=== PATIENT | female | born 1950 | race Hispanic/Latino ===

== ENCOUNTER 2017-07-01 19:25 | Inpatient (IN) | payer MEDICAID ==
[~2017-07-01] VITALS: Ht 157.5 cm; Wt 63.0 kg
[2017-07-01 19:44] LABS: BASOPHILS % (AUTO) 0.4 % (0.0-5.0); EOSINOPHILS % (AUTO) 0.1 % (0.0-8.0); HEMATOCRIT 31.4 % (36-48); LYMPHOCYTES % (AUTO) 15.9 % (21.0-51.0); MEAN CORPUSCULAR HGB CONC 33.2 g/dL (32.0-36.0); MEAN CORPUSCULAR VOLUME 78.2 fL (79-99); MONOCYTES % (AUTO) 8.9 % (3.0-13.0); NEUTROPHILS % (AUTO) 74.7 % (40.0-77.0); PLATELET COUNT (AUTO) 371 K/uL (130-400); RED BLOOD CELL COUNT(AUTO) 4.02 MIL/uL (4.00-5.50); RED CELL DISTRIBUTION WIDTH 15.5 % (11.0-15.5); WHITE BLOOD COUNT (AUTO) 11.2 K/uL (4.8-10.8)
[2017-07-01 19:58] LABS: CREATININE 0.8 mg/dL (0.5-1.5); INR 0.95 (0.85-1.15); PARTIAL THROMBOPLASTIN TIME 31.7 SEC (26.3-35.5); POTASSIUM 3.1 mmol/L (3.5-5.1)
[2017-07-01 20:12] LABS: ALBUMIN 3.9 g/dL (3.5-5.0); BILIRUBIN,TOTAL 0.6 mg/dL (0.2-1.0); CREATINE KINASE MB 1.7 ng/mL (0.5-3.6); TOTAL PROTEIN, SERUM 7.8 g/dL (6.0-8.3)
[2017-07-01] MEDS ORDERED: ONDANSETRON HCL MDV 20ML 2 MG/ML VIAL ONE (21:21)
[2017-07-01] MEDS ORDERED: MORPHINE SULFATE 4 MG/1ML SYG ONE (21:21)
[2017-07-01] MEDS ORDERED: CLONIDINE HCL 0.1 MG TABLET PO PRN (23:00)
[2017-07-01] MEDS ORDERED: ONDANSETRON HCL MDV 20ML 2 MG/ML VIAL IVP PRN (23:00)
[2017-07-01] MEDS ORDERED: MORPHINE SULFATE 4 MG/1ML SYG IM PRN (23:00)
[2017-07-01] MEDS ORDERED: HYDRALAZINE HCL 20 MG/ML VIAL IM PRN (23:00)
[2017-07-01] MEDS ORDERED: POTASSIUM CHLORIDE 10% ELIXIR 20 MEQ/15 ML UDCUP PO PRN (23:15)
[2017-07-01] MEDS ORDERED: POTASSIUM CHLORIDE 20MEQ/100ML 100 ML IV PRN (23:15)
[2017-07-01] MEDS ORDERED: LIDOCAINE HCL-MPF 1% 2ML VIAL IVP PRN (23:15)
[2017-07-01 23:20] VITALS: BP 144/78
[2017-07-02] VITALS: BP 153/81
[2017-07-02] MEDS: SODIUM CHLORIDE 0.9% 1000ML 1,000 ML IV SCH ×3 (02:03→22:51)
[2017-07-02] MEDS: MORPHINE SULFATE 4 MG/1ML SYG IV PRN ×4 (02:05→23:07)
[2017-07-02 04:00] VITALS: BP 150/64
[2017-07-02 04:54] LABS: HEMATOCRIT 27.2 % (36-48); MEAN CORPUSCULAR HEMOGLOBIN 28.5 pg (27.0-33.0); MEAN CORPUSCULAR HGB CONC 36.6 g/dL (32.0-36.0); PLATELET COUNT (AUTO) 286 K/uL (130-400); RED BLOOD CELL COUNT(AUTO) 3.48 MIL/uL (4.00-5.50); RED CELL DISTRIBUTION WIDTH 15.2 % (11.0-15.5); WHITE BLOOD COUNT (AUTO) 7.1 K/uL (4.8-10.8)
[2017-07-02] MEDS ORDERED: HYDRALAZINE HCL 20 MG/ML VIAL IV PRN (05:00)
[2017-07-02 05:08] LABS: CREATININE 0.8 mg/dL (0.5-1.5); POTASSIUM 3.7 mmol/L (3.5-5.1)
[2017-07-02 05:26] LABS: INR 0.98 (0.85-1.15); PROTHROMBIN TIME 10.3 SEC (9.6-11.6)
[2017-07-02 08:00] VITALS: BP 137/70
[2017-07-02] MEDS: FAMOTIDINE/PF 20 MG/2 ML VIAL IV SCH ×2 (08:29→22:51)
[2017-07-02] MEDS: POTASSIUM CHLORIDE 20 MEQ ERTAB PO PRN ×2 (08:30→12:00)
[2017-07-02] MEDS ORDERED: PANTOPRAZOLE 40 MG/VIAL IVP SCH (09:00)
[2017-07-02] MEDS ORDERED: ENOXAPARIN SODIUM 30 MG/0.3 ML SQ SCH (09:00)
[2017-07-02] MEDS: HYDROCHLOROTHIAZIDE 25 MG TABLET PO SCH (09:58)
[2017-07-02 12:00] VITALS: BP 134/70
[2017-07-02] MEDS: TRAMADOL HCL 50 MG TABLET PO PRN (12:01)
[2017-07-02 16:00] VITALS: BP 143/74
[2017-07-02 19:00] VITALS: BP 166/85
[2017-07-02 20:40] LABS: HEMOGLOBIN A1C 5.3 % (4.0-6.0)
[2017-07-03 04:00] VITALS: BP 164/82
[2017-07-03 05:16] LABS: HEMATOCRIT 27.1 % (36-48); MEAN CORPUSCULAR HEMOGLOBIN 27.1 pg (27.0-33.0); MEAN CORPUSCULAR HGB CONC 34.6 g/dL (32.0-36.0); MEAN CORPUSCULAR VOLUME 78.5 fL (79-99); PLATELET COUNT (AUTO) 313 K/uL (130-400); RED BLOOD CELL COUNT(AUTO) 3.45 MIL/uL (4.00-5.50); RED CELL DISTRIBUTION WIDTH 15.1 % (11.0-15.5)
[2017-07-03] MEDS: MORPHINE SULFATE 4 MG/1ML SYG IV PRN ×4 (05:23→23:20)
[2017-07-03 05:27] LABS: INR 0.95 (0.85-1.15); PARTIAL THROMBOPLASTIN TIME 34.1 SEC (26.3-35.5)
[2017-07-03 05:33] LABS: CREATININE 0.7 mg/dL (0.5-1.5); POTASSIUM 3.8 mmol/L (3.5-5.1)
[2017-07-03 08:00] VITALS: BP 157/95
[2017-07-03] MEDS: HYDROCHLOROTHIAZIDE 25 MG TABLET PO SCH (08:54)
[2017-07-03] MEDS: ACETAMINOPHEN 325 MG TAB PO PRN (08:54)
[2017-07-03] MEDS: ENOXAPARIN SODIUM 40 MG/0.4 ML SYRINGE SQ SCH (08:54)
[2017-07-03] MEDS: FAMOTIDINE/PF 20 MG/2 ML VIAL IV SCH ×2 (08:55→21:34)
[2017-07-03 12:00] VITALS: BP 151/67
[2017-07-03] MEDS: SODIUM CHLORIDE 0.9% 1000ML 1,000 ML IV SCH (15:15)
[2017-07-03 16:00] VITALS: BP 168/80
[2017-07-03 19:00] VITALS: BP 165/82
[2017-07-03] MEDS: TRAMADOL HCL 50 MG TABLET PO PRN (22:59)
[2017-07-04] VITALS (19 sets, daily range): BP systolic 117–169; BP diastolic 58–89
[2017-07-04] MEDS: SODIUM CHLORIDE 0.9% 1000ML 1,000 ML IV SCH ×5 (01:15→21:15)
[2017-07-04] MEDS: MORPHINE SULFATE 4 MG/1ML SYG IV PRN ×3 (05:15→23:07)
[2017-07-04 05:47] LABS: HEMATOCRIT 29.5 % (36-48); MEAN CORPUSCULAR HEMOGLOBIN 27.5 pg (27.0-33.0); MEAN CORPUSCULAR HGB CONC 35.3 g/dL (32.0-36.0); MEAN CORPUSCULAR VOLUME 77.9 fL (79-99); NUCLEATED RED BLOOD CELLS 0.1 % (0.0-0.19); PLATELET COUNT (AUTO) 349 K/uL (130-400); RED BLOOD CELL COUNT(AUTO) 3.79 MIL/uL (4.00-5.50); WHITE BLOOD COUNT (AUTO) 10.8 K/uL (4.8-10.8)
[2017-07-04 05:57] LABS: CREATININE 0.7 mg/dL (0.5-1.5); POTASSIUM 3.6 mmol/L (3.5-5.1)
[2017-07-04 07:53] LABS: EOSINOPHILS % (MANUAL) 2 % (1-6); LYMPHOCYTES % (MANUAL) 14 % (22-44); MAN.DIFF COMMENT-IMPRESSION MANUAL DIFFERENTIAL; MONOCYTES % (MANUAL) 6 % (2-9); PLATELET MORPHOLOGY COMMENT ADEQUATE; SEGMENTED NEUTROPHILS % 78 % (40-70)
[2017-07-04] MEDS: ENOXAPARIN SODIUM 40 MG/0.4 ML SYRINGE SQ SCH (09:00)
[2017-07-04] MEDS: HYDROCHLOROTHIAZIDE 25 MG TABLET PO SCH (09:00)
[2017-07-04] MEDS: FAMOTIDINE/PF 20 MG/2 ML VIAL IV SCH ×2 (10:14→21:04)
[2017-07-04] MEDS ORDERED: FENTANYL CITRATE PF 50 MCG/1 ML 5ML AMP IV ONE (14:18)
[2017-07-04] MEDS ORDERED: MIDAZOLAM HCL 1 MG/ML 2ML VIAL ONE (14:18)
[2017-07-04] MEDS ORDERED: PROPOFOL 10 MG/ML 20ML VIAL IV ONE (14:19)
[2017-07-04] MEDS ORDERED: MORPHINE SULFATE 4 MG/1ML SYG IVP PRN (19:45)
[2017-07-04] MEDS: TRAMADOL HCL 50 MG TABLET PO PRN (21:09)
[2017-07-04] MEDS: CEFAZOLIN SODIUM 1 GM VIAL IVP SCH (23:06)
[2017-07-05] VITALS (7 sets, daily range): BP systolic 139–173; BP diastolic 61–88
[2017-07-05] MEDS: SODIUM CHLORIDE 0.9% 1000ML 1,000 ML IV SCH ×2 (04:21→17:15)
[2017-07-05] MEDS: MORPHINE SULFATE 4 MG/1ML SYG IV PRN (04:21)
[2017-07-05] MEDS: CEFAZOLIN SODIUM 1 GM VIAL IVP SCH (06:41)
[2017-07-05] MEDS: HYDROCHLOROTHIAZIDE 25 MG TABLET PO SCH (08:37)
[2017-07-05] MEDS: HYDROCODONE/ACETAMINOPHEN 5/325 MG TAB PO PRN ×3 (08:37→22:29)
[2017-07-05] MEDS: ENOXAPARIN SODIUM 40 MG/0.4 ML SYRINGE SQ SCH ×2 (09:00→10:01)
[2017-07-05] MEDS: FAMOTIDINE/PF 20 MG/2 ML VIAL IV SCH ×2 (10:01→19:59)
[2017-07-05] MEDS ORDERED: LACTULOSE 20 GM/30 ML UDCUP PO PRN (19:15)
[2017-07-06] MEDS: SODIUM CHLORIDE 0.9% 1000ML 1,000 ML IV SCH ×3 (03:15→23:15)
[2017-07-06 04:00] VITALS: BP 145/76
[2017-07-06] MEDS: HYDROCODONE/ACETAMINOPHEN 5/325 MG TAB PO PRN ×5 (04:18→23:40)
[2017-07-06 05:02] LABS: HEMATOCRIT 27.1 % (36-48); MEAN CORPUSCULAR HEMOGLOBIN 27.3 pg (27.0-33.0); MEAN CORPUSCULAR HGB CONC 34.4 g/dL (32.0-36.0); MEAN CORPUSCULAR VOLUME 79.3 fL (79-99); PLATELET COUNT (AUTO) 401 K/uL (130-400); RED BLOOD CELL COUNT(AUTO) 3.42 MIL/uL (4.00-5.50); WHITE BLOOD COUNT (AUTO) 9.4 K/uL (4.8-10.8)
[2017-07-06 05:07] LABS: CREATININE 0.8 mg/dL (0.5-1.5); POTASSIUM 3.4 mmol/L (3.5-5.1)
[2017-07-06 05:32] LABS: BASOPHILS % (MANUAL) 1 % (0-2); LYMPHOCYTES % (MANUAL) 36 % (22-44); MAN.DIFF COMMENT-IMPRESSION MANUAL DIFFERENTIAL; MONOCYTES % (MANUAL) 5 % (2-9); SEGMENTED NEUTROPHILS % 58 % (40-70)
[2017-07-06] MEDS: POTASSIUM CHLORIDE 20 MEQ ERTAB PO PRN ×2 (06:21→08:26)
[2017-07-06] MEDS: HYDROCHLOROTHIAZIDE 25 MG TABLET PO SCH (08:26)
[2017-07-06] MEDS: FAMOTIDINE/PF 20 MG/2 ML VIAL IV SCH ×2 (08:26→19:34)
[2017-07-06] MEDS: ASPIRIN 81MG TAB.CHEW PO SCH (08:26)
[2017-07-06] MEDS: ENOXAPARIN SODIUM 40 MG/0.4 ML SYRINGE SQ SCH (08:27)
[2017-07-06 09:19] VITALS: BP 157/83
[2017-07-06] MEDS: TRAMADOL HCL 50 MG TABLET PO PRN ×2 (11:16→19:21)
[2017-07-06 12:05] VITALS: BP 133/73
[2017-07-06 16:00] VITALS: BP 136/69
[2017-07-06 19:50] VITALS: BP 141/62
[2017-07-07] VITALS (7 sets, daily range): BP systolic 132–155; BP diastolic 55–113
[2017-07-07] MEDS: TRAMADOL HCL 50 MG TABLET PO PRN ×2 (02:35→18:14)
[2017-07-07 04:45] LABS: CREATININE 0.6 mg/dL (0.5-1.5)
[2017-07-07 04:57] LABS: HEMATOCRIT 28.2 % (36-48); MEAN CORPUSCULAR HEMOGLOBIN 26.1 pg (27.0-33.0); MEAN CORPUSCULAR HGB CONC 32.9 g/dL (32.0-36.0); MEAN CORPUSCULAR VOLUME 79.3 fL (79-99); PLATELET COUNT (AUTO) 442 K/uL (130-400); RED BLOOD CELL COUNT(AUTO) 3.55 MIL/uL (4.00-5.50); RED CELL DISTRIBUTION WIDTH 14.8 % (11.0-15.5); WHITE BLOOD COUNT (AUTO) 8.9 K/uL (4.8-10.8)
[2017-07-07 05:28] LABS: BAND NEUTROPHILS % (MANUAL) 6 % (0-2); BASOPHILS % (MANUAL) 1 % (0-2); EOSINOPHILS % (MANUAL) 1 % (1-6); LYMPHOCYTES % (MANUAL) 26 % (22-44); MAN.DIFF COMMENT-IMPRESSION MANUAL DIFFERENTIAL; MONOCYTES % (MANUAL) 5 % (2-9); PLATELET MORPHOLOGY COMMENT SLIGHT INCREASED; SEGMENTED NEUTROPHILS % 61 % (40-70)
[2017-07-07] MEDS: FAMOTIDINE/PF 20 MG/2 ML VIAL IV SCH ×2 (08:34→19:39)
[2017-07-07] MEDS: ASPIRIN 81MG TAB.CHEW PO SCH (08:34)
[2017-07-07] MEDS: HYDROCHLOROTHIAZIDE 25 MG TABLET PO SCH (08:34)
[2017-07-07] MEDS: ENOXAPARIN SODIUM 40 MG/0.4 ML SYRINGE SQ SCH (08:35)
[2017-07-07] MEDS: HYDROCODONE/ACETAMINOPHEN 5/325 MG TAB PO PRN ×3 (08:37→19:40)
[2017-07-07] MEDS: SODIUM CHLORIDE 0.9% 1000ML 1,000 ML IV SCH ×2 (09:15→19:15)
[2017-07-07] MEDS: ACETAMINOPHEN 325 MG TAB PO PRN (15:38)
[2017-07-08] MEDS: HYDROCODONE/ACETAMINOPHEN 5/325 MG TAB PO PRN ×4 (01:29→17:22)
[2017-07-08] MEDS: SODIUM CHLORIDE 0.9% 1000ML 1,000 ML IV SCH ×2 (02:35→15:15)
[2017-07-08 04:35] VITALS: BP 141/70
[2017-07-08 04:56] LABS: HEMATOCRIT 29.2 % (36-48); MEAN CORPUSCULAR HEMOGLOBIN 27.5 pg (27.0-33.0); MEAN CORPUSCULAR HGB CONC 34.6 g/dL (32.0-36.0); MEAN CORPUSCULAR VOLUME 79.4 fL (79-99); NUCLEATED RED BLOOD CELLS 0.1 % (0.0-0.19); PLATELET COUNT (AUTO) 489 K/uL (130-400); RED BLOOD CELL COUNT(AUTO) 3.68 MIL/uL (4.00-5.50); RED CELL DISTRIBUTION WIDTH 15.1 % (11.0-15.5); WHITE BLOOD COUNT (AUTO) 10.9 K/uL (4.8-10.8)
[2017-07-08 05:20] LABS: CREATININE 0.8 mg/dL (0.5-1.5); POTASSIUM 4.1 mmol/L (3.5-5.1)
[2017-07-08 05:37] LABS: BAND NEUTROPHILS % (MANUAL) 9 % (0-2); EOSINOPHILS % (MANUAL) 4 % (1-6); LYMPHOCYTES % (MANUAL) 19 % (22-44); MAN.DIFF COMMENT-IMPRESSION MANUAL DIFFERENTIAL; MONOCYTES % (MANUAL) 6 % (2-9); PLATELET MORPHOLOGY COMMENT SLIGHT INCREASED; SEGMENTED NEUTROPHILS % 62 % (40-70)
[2017-07-08 08:00] VITALS: BP 163/97
[2017-07-08] MEDS: FAMOTIDINE/PF 20 MG/2 ML VIAL IV SCH ×2 (09:00→19:43)
[2017-07-08] MEDS: ASPIRIN 81MG TAB.CHEW PO SCH (09:23)
[2017-07-08] MEDS: HYDROCHLOROTHIAZIDE 25 MG TABLET PO SCH (09:23)
[2017-07-08] MEDS: ENOXAPARIN SODIUM 40 MG/0.4 ML SYRINGE SQ SCH (09:24)
[2017-07-08 12:00] VITALS: BP 139/61
[2017-07-08 16:00] VITALS: BP 134/63
[2017-07-08 19:00] VITALS: BP 138/74
[2017-07-08] MEDS: TRAMADOL HCL 50 MG TABLET PO PRN (19:43)
[2017-07-08 23:42] VITALS: BP 134/70
[2017-07-09] MEDS: HYDROCODONE/ACETAMINOPHEN 5/325 MG TAB PO PRN ×5 (00:54→20:13)
[2017-07-09] MEDS: SODIUM CHLORIDE 0.9% 1000ML 1,000 ML IV SCH ×3 (01:15→21:15)
[2017-07-09 04:00] VITALS: BP 131/77
[2017-07-09 05:41] LABS: HEMATOCRIT 30.7 % (36-48); MEAN CORPUSCULAR HGB CONC 32.8 g/dL (32.0-36.0); MEAN CORPUSCULAR VOLUME 79.2 fL (79-99); NUCLEATED RED BLOOD CELLS 0.3 % (0.0-0.19); PLATELET COUNT (AUTO) 529 K/uL (130-400); RED BLOOD CELL COUNT(AUTO) 3.87 MIL/uL (4.00-5.50); RED CELL DISTRIBUTION WIDTH 14.9 % (11.0-15.5); WHITE BLOOD COUNT (AUTO) 12.7 K/uL (4.8-10.8)
[2017-07-09 05:48] LABS: CREATININE 0.8 mg/dL (0.5-1.5); POTASSIUM 4.1 mmol/L (3.5-5.1)
[2017-07-09 08:00] VITALS: BP 123/76
[2017-07-09 08:35] LABS: EOSINOPHILS % (MANUAL) 4 % (1-6); LYMPHOCYTES % (MANUAL) 29 % (22-44); MAN.DIFF COMMENT-IMPRESSION MANUAL DIFFERENTIAL; MONOCYTES % (MANUAL) 4 % (2-9); PLATELET MORPHOLOGY COMMENT MARKED INCREASED; REACTIVE LYMPHOCYTES 1 % (0-0); SEGMENTED NEUTROPHILS % 62 % (40-70)
[2017-07-09] MEDS: FAMOTIDINE/PF 20 MG/2 ML VIAL IV SCH ×2 (09:00→20:17)
[2017-07-09] MEDS: HYDROCHLOROTHIAZIDE 25 MG TABLET PO SCH (10:10)
[2017-07-09] MEDS: ASPIRIN 81MG TAB.CHEW PO SCH (10:10)
[2017-07-09] MEDS: ENOXAPARIN SODIUM 40 MG/0.4 ML SYRINGE SQ SCH (10:11)
[2017-07-09 12:00] VITALS: BP 146/93
[2017-07-09 16:00] VITALS: BP 148/79
[2017-07-09] MEDS: ACETAMINOPHEN 325 MG TAB PO PRN (17:01)
[2017-07-09 20:00] VITALS: BP 132/74
[2017-07-09 23:55] VITALS: BP 153/74
[2017-07-10] MEDS: HYDROCODONE/ACETAMINOPHEN 5/325 MG TAB PO PRN ×4 (00:06→14:30)
[2017-07-10 04:00] VITALS: BP 133/75
[2017-07-10 06:07] LABS: HEMATOCRIT 30.2 % (36-48); MEAN CORPUSCULAR HGB CONC 34.1 g/dL (32.0-36.0); MEAN CORPUSCULAR VOLUME 79.2 fL (79-99); NUCLEATED RED BLOOD CELLS 0.1 % (0.0-0.19); PLATELET COUNT (AUTO) 519 K/uL (130-400); RED BLOOD CELL COUNT(AUTO) 3.81 MIL/uL (4.00-5.50); RED CELL DISTRIBUTION WIDTH 14.8 % (11.0-15.5); WHITE BLOOD COUNT (AUTO) 12.3 K/uL (4.8-10.8)
[2017-07-10 06:41] LABS: CREATININE 0.8 mg/dL (0.5-1.5); POTASSIUM 4.3 mmol/L (3.5-5.1)
[2017-07-10 07:55] LABS: BAND NEUTROPHILS % (MANUAL) 1 % (0-2); EOSINOPHILS % (MANUAL) 2 % (1-6); LYMPHOCYTES % (MANUAL) 17 % (22-44); MONOCYTES % (MANUAL) 4 % (2-9); MYELOCYTES % 1 % (0-0); SEGMENTED NEUTROPHILS % 75 % (40-70)
[2017-07-10 07:56] LABS: MAN.DIFF COMMENT-IMPRESSION MANUAL DIFFERENTIAL
[2017-07-10 07:57] LABS: PLATELET MORPHOLOGY COMMENT INCREASED
[2017-07-10 08:14] VITALS: BP 122/54
[2017-07-10] MEDS: ASPIRIN 81MG TAB.CHEW PO SCH (08:37)
[2017-07-10] MEDS: HYDROCHLOROTHIAZIDE 25 MG TABLET PO SCH (08:38)
[2017-07-10] MEDS: TRAMADOL HCL 50 MG TABLET PO PRN (08:38)
[2017-07-10] MEDS: ENOXAPARIN SODIUM 40 MG/0.4 ML SYRINGE SQ SCH (08:38)
[2017-07-10] MEDS: FAMOTIDINE/PF 20 MG/2 ML VIAL IV SCH (09:00)
[2017-07-10] MEDS ORDERED: HYDR25TA PO (09:30)
[2017-07-10 11:19] VITALS: BP 132/64
[2017-07-10] MEDS ORDERED: GABAPENTIN 100 MG CAPSULE PO SCH (21:00)
== END 2017-07-10 16:20 | disposition home health service (06) | DRG 308 ==
LOC: EDH 19:25 → EDHIP 19:26 → 4BH 23:09
PROVIDERS: ADMIT Family Medicine; ATTEND Family Medicine
PROC: 0QS606Z Reposition Right Upper Femur with Intramedullary Internal Fixation Device, Open Approach (ICD-10-PCS; principal; 2017-07-04 14:30)
DX: S72.141A Displaced intertrochanteric fracture of right femur, initial encounter for closed fracture (principal); I11.9 Hypertensive heart disease without heart failure; D72.829 Elevated white blood cell count, unspecified; E86.0 Dehydration; E87.6 Hypokalemia; H54.61 Unqualified visual loss, right eye, normal vision left eye; W01.0XXA Fall on same level from slipping, tripping and stumbling without subsequent striking against object, initial encounter; Z60.2 Problems related to living alone; Z91.14 Patient's other noncompliance with medication regimen; Z86.73 Personal history of transient ischemic attack (TIA), and cerebral infarction without residual deficits; Z91.19 Patient's noncompliance with other medical treatment and regimen; Y93.89 Activity, other specified; Y92.89 Other specified places as the place of occurrence of the external cause; Y99.8 Other external cause status
CPT/HCPCS: 36415; 70450; 71045; 73501; 73502; 73551; 73560; 76000; 80048; 80053; 80061; 82550; 82553; 83036; 83874; 84484; 85025; 85027; 85610; 85730; 86850; 86900; 86901; 86922; 93005; 93306; 93880; 97039; A4218; A4344; J0360; J0690; J1650; J2250; J2270; J2704; J3010; J3480; J3490; J7030

== ENCOUNTER 2017-07-22 14:17 | Emergency (ER) | payer MEDICAID ==
[~2017-07-22 14:17] MED LIST: HYDR25TA PO
[2017-07-22] MEDS ORDERED: ACETAMINOPHEN EXTRA STRENGTH 500 MG TABLET ONE (15:39)
[2017-07-22 15:50] LABS: APPEARANCE,URINE Clear (CLEAR); BASOPHILS % (AUTO) 1.1 % (0.0-5.0); BILIRUBIN,URINE Negative (NEGATIVE); COLOR,URINE Yellow (YELLOW); EOSINOPHILS % (AUTO) 0.7 % (0.0-8.0); GLUCOSE, URINE (UA) Negative (NEGATIVE); HEMATOCRIT 30.8 % (36-48); KETONES,URINE Negative (NEGATIVE); LEUKOCYTE ESTERASE ,URINE Negative (NEGATIVE); LYMPHOCYTES % (AUTO) 13.8 % (21.0-51.0); MEAN CORPUSCULAR HEMOGLOBIN 27.5 pg (27.0-33.0); MEAN CORPUSCULAR HGB CONC 34.7 g/dL (32.0-36.0); MEAN CORPUSCULAR VOLUME 79.3 fL (79-99); MONOCYTES % (AUTO) 5.6 % (3.0-13.0); NEUTROPHILS % (AUTO) 78.8 % (40.0-77.0); NITRATE,URINE Negative (NEGATIVE); OCCULT BLOOD,URINE Negative (NEGATIVE); PH,URINE 6.5 (5.0-8.0); PLATELET COUNT (AUTO) 421 K/uL (130-400); PROTEIN,URINE Negative (NEGATIVE); RED BLOOD CELL COUNT(AUTO) 3.88 MIL/uL (4.00-5.50); RED CELL DISTRIBUTION WIDTH 15.9 % (11.0-15.5); UROBILINOGEN,URINE 0.2 mg/dL (0.2-1.0); WHITE BLOOD COUNT (AUTO) 8.9 K/uL (4.8-10.8)
[2017-07-22 15:59] LABS: CREATININE 1.1 mg/dL (0.5-1.5); POTASSIUM 3.5 mmol/L (3.5-5.1)
[2017-07-22] MEDS ORDERED: SODIUM CHLORIDE 0.9% 500ML 500 ML IV ONE (16:29)
== END 2017-07-22 17:29 | disposition home or self-care (01) ==
LOC: EDH 14:17
DX: M25.551 Pain in right hip (principal); I10 Essential (primary) hypertension
CPT/HCPCS: 36415; 73502; 80048; 81003; 85025; 96360; 99285; J7040

== ENCOUNTER 2021-10-19 11:39 | Observation (INO) | payer MEDICARE ==
[~2021-10-19] VITALS: Ht 152.4 cm; Wt 59.1 kg
[2021-10-19 13:11] LABS: BASOPHILS % (AUTO) 0.5 % (0.0-5.0); EOSINOPHILS % (AUTO) 4.2 % (0.0-8.0); HEMATOCRIT 34.7 % (36-48); LYMPHOCYTES % (AUTO) 10.4 % (21.0-51.0); MEAN CORPUSCULAR HEMOGLOBIN 26.9 pg (27.0-33.0); MEAN CORPUSCULAR VOLUME 84.2 fL (79-99); MONOCYTES % (AUTO) 3.9 % (3.0-13.0); NEUTROPHILS % (AUTO) 80.1 % (40.0-77.0); PLATELET COUNT (AUTO) 294 K/uL (130-400); RED BLOOD CELL COUNT(AUTO) 4.12 MIL/uL (4.00-5.50); RED CELL DISTRIBUTION WIDTH 14.6 % (11.0-15.5); WHITE BLOOD COUNT (AUTO) 11.6 K/uL (4.8-10.8)
[2021-10-19 13:44] LABS: ALBUMIN 3.4 g/dL (3.5-5.0); BILIRUBIN,TOTAL 0.2 mg/dL (0.2-1.0); TOTAL PROTEIN, SERUM 7.3 g/dL (6.0-8.3)
[2021-10-19 13:47] LABS: INR 0.94 (0.85-1.15); PROTHROMBIN TIME 10.3 SEC (9.6-11.6)
[2021-10-19] MEDS ORDERED: ACETAMINOPHEN 500 MG TABLET ONE (14:09)
[2021-10-19] MEDS ORDERED: ACETAMINOPHEN 500 MG TABLET PO ONE (14:30)
[2021-10-19] MEDS ORDERED: CEFTRIAXONE 1G VIAL IVP ONE (15:30)
[2021-10-19] MEDS ORDERED: TETANUS/DIPHTHERIA TOXOID [ADULT] 0.5 ML VIAL IM ONE (15:30)
[2021-10-19] MEDS ORDERED: LEVETIRACETAM 500 MG/5 ML SD VIAL IV STA (15:45)
[2021-10-19] MEDS ORDERED: IBUPROFEN 600 MG TABLET ONE (18:24)
[2021-10-19] MEDS ORDERED: IBUPROFEN 600 MG TABLET PO ONE (19:00)
[2021-10-19] MEDS ORDERED: MAG/ALUM/SIMETH 30 ML UDCUP PO PRN (19:30)
[2021-10-19] MEDS ORDERED: ONDANSETRON 4MG INJ IV PRN (19:30)
[2021-10-19] MEDS ORDERED: HYDRALAZINE 20MG/ML VIAL IV PRN (19:30)
[2021-10-19] MEDS ORDERED: ACETAMINOPHEN 325 MG TAB PO PRN (19:30)
[2021-10-19] MEDS ORDERED: LACTULOSE 20 GM/30 ML UDCUP PO PRN (19:30)
[2021-10-19] MEDS: ACETAMINOPHEN 325 MG TAB PO PRN (20:34)
[2021-10-20] VITALS (11 sets, daily range): BP systolic 132–164; BP diastolic 64–88
[2021-10-20] MEDS: ACETAMINOPHEN 325 MG TAB PO PRN (02:38)
[2021-10-20] MEDS: LEVETIRACETAM 500 MG TABLET PO SCH ×2 (09:34→22:47)
[2021-10-20] MEDS: ACETAMINOPHEN WITH CODEINE 1 TAB TAB PO PRN (17:00)
[2021-10-20 18:14] LABS: APPEARANCE,URINE CLEAR (CLEAR); BILIRUBIN,URINE NEGATIVE (NEGATIVE); COLOR,URINE YELLOW (YELLOW); GLUCOSE, URINE (UA) NEGATIVE (NEGATIVE); KETONES,URINE NEGATIVE (NEGATIVE); LEUKOCYTE ESTERASE ,URINE TRACE (NEGATIVE); NITRATE,URINE NEGATIVE (NEGATIVE); OCCULT BLOOD,URINE TRACE-INTACT (NEGATIVE); PROTEIN,URINE NEGATIVE (NEGATIVE); UROBILINOGEN,URINE 0.2 mg/dL (0.2-1.0)
[2021-10-20 18:22] LABS: AMPHET/METH SCREEN,URINE NEGATIVE (NEGATIVE); BARBITURATE SCREEN, URINE NEGATIVE (NEGATIVE); BENZODIAZEPINES SCREEN,URINE NEGATIVE (NEGATIVE); CANNABINOID SCREEN,URINE NEGATIVE (NEGATIVE); COCAINE SCREEN,URINE POSITIVE (NEGATIVE); OPIATE SCREEN,URINE POSITIVE (NEGATIVE); PHENCYCLIDINE SCREEN,URINE NEGATIVE (NEGATIVE)
[2021-10-20 18:27] LABS: BACTERIA,URINE Rare /HPF (None Seen); RBC,URINE 0-1 /HPF (0-1); SQUAMOUS EPITHELIAL CELL,UR Rare /HPF (0-2); WBC,URINE 0-1 /HPF (0-1)
[2021-10-20] MEDS: TOPIRAMATE 25 MG TABLET PO SCH ×2 (18:56→22:47)
[2021-10-21] MEDS: ACETAMINOPHEN WITH CODEINE 1 TAB TAB PO PRN (00:40)
[2021-10-21 03:47] VITALS: BP 148/79
[2021-10-21] MEDS: ACETAMINOPHEN 325 MG TAB PO PRN ×2 (04:55→16:13)
[2021-10-21 06:24] LABS: BASOPHILS % (AUTO) 0.7 % (0.0-5.0); EOSINOPHILS % (AUTO) 10.7 % (0.0-8.0); HEMATOCRIT 28.6 % (36-48); MEAN CORPUSCULAR HEMOGLOBIN 26.9 pg (27.0-33.0); MEAN CORPUSCULAR HGB CONC 31.8 g/dL (32.0-36.0); MEAN CORPUSCULAR VOLUME 84.6 fL (79-99); MONOCYTES % (AUTO) 6.5 % (3.0-13.0); PLATELET COUNT (AUTO) 265 K/uL (130-400); RED BLOOD CELL COUNT(AUTO) 3.38 MIL/uL (4.00-5.50); RED CELL DISTRIBUTION WIDTH 14.6 % (11.0-15.5); WHITE BLOOD COUNT (AUTO) 8.9 K/uL (4.8-10.8)
[2021-10-21 06:48] LABS: POTASSIUM 3.7 mmol/L (3.5-5.1)
[2021-10-21 08:00] VITALS: BP 157/80
[2021-10-21] MEDS: LEVETIRACETAM 500 MG TABLET PO SCH ×2 (10:29→16:29)
[2021-10-21] MEDS: TOPIRAMATE 25 MG TABLET PO SCH ×2 (10:29→12:20)
[2021-10-21] MEDS ORDERED: CEPHALEXIN 500 MG CAPSULE PO SCH (11:30)
[2021-10-21 11:40] VITALS: BP 160/74
[2021-10-21 11:41] VITALS: BP_SYST 143; BP_SYST 146; BP_DIAS 65; BP_DIAS 76
[2021-10-21] MEDS ORDERED: LEVE-43 PO (12:30)
== END 2021-10-21 16:40 | disposition home or self-care (01) ==
LOC: EDH 11:39 → EDHIP 15:31 → 3CH 23:06
PROVIDERS: ADMIT Internal Medicine; ATTEND Internal Medicine
DX: S01.01XA Laceration without foreign body of scalp, initial encounter (principal); G40.909 Epilepsy, unspecified, not intractable, without status epilepticus; I10 Essential (primary) hypertension; G31.9 Degenerative disease of nervous system, unspecified; F17.210 Nicotine dependence, cigarettes, uncomplicated; F14.90 Cocaine use, unspecified, uncomplicated; W10.9XXA Fall (on) (from) unspecified stairs and steps, initial encounter; Y92.009 Unspecified place in unspecified non-institutional (private) residence as the place of occurrence of the external cause; Y93.89 Activity, other specified; Z91.19 Patient's noncompliance with other medical treatment and regimen; Z79.899 Other long term (current) drug therapy; Z23 Encounter for immunization
CPT/HCPCS: 36415 ×3; 70450; 72125; 80048; 80053; 80305; 81001; 82550; 82948; 84145; 85025 ×2; 85610; 87088; 90471; 90714; 95819; 96374; 96375; 99285; G0378 ×46; J0360; J0696; J1953

== ENCOUNTER 2021-11-04 15:30 | Emergency (ER) | payer MEDICARE ==
[~2021-11-04] VITALS: Ht 165.1 cm; Wt 67.1 kg
[~2021-11-04 15:30] MED LIST changes: +LEVE-43 PO
[2021-11-04 15:33] VITALS: BP 78/178
== END 2021-11-04 16:09 | disposition home or self-care (01) ==
LOC: EDH 15:30
DX: S01.81XD Laceration without foreign body of other part of head, subsequent encounter (principal); Z79.899 Other long term (current) drug therapy; Z60.2 Problems related to living alone; X58.XXXD Exposure to other specified factors, subsequent encounter